=== PATIENT | female | born 1980 | race Caucasian/White ===

== ENCOUNTER 2020-06-20 14:31 | Emergency (ER) | payer SELFPAY ==
[2020-06-20 14:59] VITALS: BP 129/81; PULSE 98; RESP 20; TEMP 36.7; O2SAT 98; BMI 25.0
--- NOTE | 2020-06-20 15:13 | HMH.EDUTC ---
[facility] [place] Clinical Impression: Otitis media Qualifiers: Otitis media type: unspecified Laterality: left Qualified Code(s): H66.92 - Otitis media, unspecified, left ear Disposition: Home, Self-Care Condition on Discharge: Good Instructions: DI for Cerumen Impaction, Middle Ear Infection, Amoxicillin Additional Instructions: Take medication as prescribed *Follow up with Family doctor if no improvement or any worsening of symptoms Return if needed Over the counter Tylenol may help with pain Straight to ER if any life threatening symptoms Prescriptions: Amoxicillin [Amoxicillin 500mg Cap] 500 mg PO TID #30 cap Transmission Status: Received by [facility] Referrals: PCP,No [Primary Care Provider] - As needed Time of Disposition: 15:32 Medical Decision Making - Marcell Inquiry Pt receiving controlled substance: No Marcell was queried for this patient: No Vital Signs: 06/20/20 14:59 Temperature 98.1 F Temperature Source Oral Pulse Rate [Right Brachial] 98 H Respiratory Rate 20 Blood Pressure [Right Arm] 129/81 Blood Pressure Mean [Right Arm] 97 Blood Pressure Source [Right Arm] Automatic Cuff Blood Pressure Position [Right Arm] Sitting 02 Sat by Pulse Oximetry 98 Oxygen Delivery Method Room Air Medical Decision Narrative: Some wax remains, redness noted patient placed on Antibiotics for infection [facility] [place] HPI - General Stated complaint: ear pain Time Seen by Provider: 06/20/20 15:13 Mode of Arrival: Ambulatory Source of Information: Patient Limitations: No Limitations Description of Symptoms (Recalled from Triage Doc. by RN): PATIENT C/O LEFT EAR PAIN X 2 DAYS HEENT Symptoms (Recalled from RN notes): Yes Resp Symptoms (Recalled from RN notes): No Skin Symptoms (Recalled from RN notes): No MS Symptoms (Recalled from RN notes): No Functional Status (Recalled from RN notes): WNL - History of Present Illness Provider Complaint: Patient states that she hasnt been able to hear out of her left ear States that she has tried to get it cleaned out but feels like it is stopped up States that pain has continued to get worse over the last couple of days so she came in to get it checked Patient states that she is about 9wk OB - Related Data Previous Rx's Medication Instructions Recorded Amoxicillin [Amoxicillin 500mg 500 mg PO TID #30 cap 06/20/20 Cap] Allergies Allergy/AdvReac Type Severity Reaction Status Date / Time No Known Allergies Allergy Verified 06/20/20 15:02 - Worker's Comp Is this a Worker's Comp case?: No H History - Hepatitis A Screen Drug use history?: No High risk sexual behaviors?: No History of sexually transmitted infection?: No Currently employed?: No Childcare worker?: No Do you have indoor plumbing?: Yes Do you have electricity?: Yes Attestation statement:: This patient has been screened for Hepatitis A risk factors. I have reviewed the patient's past medical history: Yes - Social History Alcohol Intake: never Occupational Status: other ROS Obtained: Yes All systems reviewed & no additional complaints, Yes Systems reviewed as appropriate & no additional complaints - Constitutional Constitutional: Reports system reviewed and no additional complaints, except as docu - Eyes Eyes: Reports system reviewed and no additional complaints, except as docu - ENT Ears, Nose, Mouth, and Throat: Reports otalgia - Cardiovascular Cardiovascular: Reports system reviewed and no additional complaints, except as docu - Respiratory Respiratory: Yes system reviewed and no additional complaints, except as docu - Gastrointestinal Gastrointestingal: Reports: system reviewed and no additional complaints, except as docu Physical Exam - General General appearance: alert, in no apparent distress - Expanded ENT Exam TM/Canal exam: Left TM: erythema (Redness noted in canal, cerum impaction noted will remove and re-evaluate ear), cerumen impaction
[2020-06-20 15:30] VITALS: BP 129/81; PULSE 98; RESP 20; TEMP 36.7; O2SAT 98
== END 2020-06-20 15:35 | disposition home or self-care (01) ==
PROVIDERS: Emergency Provider Nurse Practitioner
DX: H66.92 Otitis media, unspecified, left ear (principal)
CPT/HCPCS: 99201